=== PATIENT | male | born 1980 | race Caucasian/White ===

== ENCOUNTER 2016-06-03 12:39 | Emergency (ER) | payer OTHER ==
[~2016-06-03] VITALS: Ht 182.9 cm; Wt 89.4 kg
[2016-06-03 12:49] VITALS: BP 126/71
== END 2016-06-03 13:25 | disposition home or self-care (01) ==
LOC: ER 12:48
DX: M25.561 Pain in right knee (principal)
CPT/HCPCS: 99282; A4606; Z7610

== ENCOUNTER 2018-09-16 12:53 | Emergency (ER) | payer OTHER ==
[~2018-09-16] VITALS: Ht 177.8 cm; Wt 76.7 kg
[2018-09-16 12:49] VITALS: BP 131/84
[2018-09-16] MEDS ORDERED: ACETAMINOPHEN 325 MG TABLET ONE (13:24)
[2018-09-16] MEDS ORDERED: ACETAMINOPHEN 325 MG TABLET PO ONE (13:30)
--- NOTE | 2018-09-16 13:42 | NUR ---
Patient discharged to home in stable condition. Written and verbal after care instructions given. Patient verbalizes understanding of instruction.
== END 2018-09-16 13:40 | disposition home or self-care (01) ==
LOC: ER 12:53
DX: S01.01XA Laceration without foreign body of scalp, initial encounter (principal); W22.8XXA Striking against or struck by other objects, initial encounter; Y93.89 Activity, other specified; Y92.89 Other specified places as the place of occurrence of the external cause; Y99.8 Other external cause status
CPT/HCPCS: 12001; 99283; A6403

== ENCOUNTER 2018-09-26 11:41 | Emergency (ER) | payer OTHER ==
[~2018-09-26] VITALS: Ht 165.1 cm; Wt 72.1 kg
[2018-09-26 11:59] VITALS: BP 134/78
== END 2018-09-26 12:24 | disposition home or self-care (01) ==
LOC: ER 11:42
DX: S01.01XD Laceration without foreign body of scalp, subsequent encounter (principal); X58.XXXD Exposure to other specified factors, subsequent encounter